=== PATIENT | male | born 1995 | race Caucasian/White ===

== ENCOUNTER 2017-03-24 11:49 | Emergency (ER) | payer SELFPAY | END 2017-03-24 14:10 | disposition home or self-care (01) | LOC: ER1 11:49 | DX: S50.12XA Contusion of left forearm, initial encounter (principal); F17.210 Nicotine dependence, cigarettes, uncomplicated; W01.0XXA Fall on same level from slipping, tripping and stumbling without subsequent striking against object, initial encounter | CPT/HCPCS: 73080; 73090; 99283 ==

== ENCOUNTER 2021-06-30 15:16 | Emergency (ER) | payer BC | END 2021-06-30 17:34 | disposition home or self-care (01) | LOC: ER1 15:16 | DX: R19.7 Diarrhea, unspecified (principal); R05 Cough; Z20.822 Contact with and (suspected) exposure to COVID-19 | CPT/HCPCS: 99284; U0002 ==

== ENCOUNTER 2022-05-19 23:19 | Emergency (ER) | payer BC ==
[2022-05-20] MEDS ORDERED: PENVEE K 500 M500 MG PO (00:40)
[2022-05-20] MEDS ORDERED: IBUPROFEN600 MG PO (00:40)
== END 2022-05-20 01:00 | disposition home or self-care (01) ==
LOC: ER1 23:19
DX: K02.9 Dental caries, unspecified (principal); F17.210 Nicotine dependence, cigarettes, uncomplicated
CPT/HCPCS: 96372; 99282; J1885